=== PATIENT | female | born 1990 | race Caucasian/White ===

== ENCOUNTER 2018-02-21 09:26 | Emergency (ER) | payer OTHER ==
[2018-02-21] MEDS ORDERED: SODIUM CHLORIDE 0.9% 1,000 ML IV ONE (12:06)
[2018-02-21] MEDS ORDERED: METOCLOPRAMIDE 10 MG/2 ML VIAL IVP STA (12:06)
[2018-02-21 12:50] LABS: BASOPHILS % (AUTO) 0.7 %; EOSINOPHILS % (AUTO) 0.7 %; HGB - HEMOGLOBIN 13.9 g/dL (12.0-16.0); LYMPHOCYTES # (AUTO) 1.7 10^3/uL (1.5-3.5); LYMPHOCYTES % (AUTO) 35.7 %; MEAN CORPUSCULAR HEMOGLOBIN 31.2 pg (27.0-31.0); MEAN CORPUSCULAR HGB CONC 34.2 g/dL (32.0-36.0); MEAN CORPUSCULAR VOLUME 91.2 fL (81.0-99.0); MEAN PLATELET VOLUME 8.2 fL (7.9-10.8); MONOCYTES # (AUTO) 0.6 10^3/uL (0.0-1.0); MONOCYTES % (AUTO) 12.3 %; NEUTROPHILS # (AUTO) 2.4 10^3/uL (1.5-6.6); NEUTROPHILS % (AUTO) 50.6 %; PLT - PLATELET COUNT 203 10^3/uL (130-450); RED BLOOD COUNT 4.47 10^6/uL (4.20-5.40); RED CELL DISTRIBUTION WIDTH 12.8 % (12.0-15.0); WHITE BLOOD COUNT 4.7 x10^3/uL (4.8-10.8)
--- NOTE | 2018-02-21 12:51 | XRAY Report ---
Reason: pain Procedure Date: 02/21/2018 Accession Number: [id number] / [id number] Procedure: XR - Abdomen Acute CPT Code: FULL RESULT: EXAM: ABDOMINAL SERIES AND PA CHEST EXAM DATE: 02/21/2018 12:20 PM. CLINICAL HISTORY: Pain. COMPARISON: None. TECHNIQUE: 2 views abdomen and 1 view chest. FINDINGS: CHEST: Lungs/Pleura: No focal opacities. No effusion or pneumothorax. Mediastinum: Within exam limitations, cardiomediastinal contour is normal. ABDOMEN: Bowel Gas Pattern: Within normal limits. No dilated loops or abnormal fluid levels. Free Air: None. There is a moderate stool burden. IMPRESSION: No acute thoracic or abdominal findings [facility]
[2018-02-21 13:30] LABS: ACETAMINOPHEN < 10 ug/mL (10-30); ALBUMIN/GLOBULIN RATIO 1.5 (1.0-2.2); ALKALINE PHOSPHATASE 65 IU/L (42-121); ALT ALANINE AMINOTRANSFERASE 15 IU/L (10-60); AST ASPARTATE AMINOTRANSFERASE 23 IU/L (10-42); BILIRUBIN,TOTAL 0.5 mg/dL (0.2-1.0); BUN - BLOOD UREA NITROGEN 9 mg/dL (6-20); CALCIUM 8.4 mg/dL (8.5-10.3); CARBON DIOXIDE - CO2 21 mmol/L (21-32); CHLORIDE 108 mmol/L (101-111); CREATININE 0.6 mg/dL (0.4-1.0); GFR - MDRD 119 (>89); GLUCOSE 99 mg/dL (70-100); LIPASE 28 U/L (22-51); SALICYLATE < 6.0 mg/dL; SODIUM 136 mmol/L (135-145); TOTAL PROTEIN 6.7 g/dL (6.7-8.2)
--- NOTE | 2018-02-21 13:55 | CT Report ---
Reason: Convulsion like activity Procedure Date: 02/21/2018 Accession Number: [id number] / [id number] Procedure: CT - Head W/O CPT Code: FULL RESULT: EXAM: CT HEAD EXAM DATE: 02/21/2018 01:19 PM. CLINICAL HISTORY: Convulsion like activity. COMPARISON: None. TECHNIQUE: Multiaxial CT images were obtained from the foramen magnum to the vertex. Reformats: Sagittal and coronal. IV contrast: None. In accordance with CT protocol optimization, one or more of the following dose reduction techniques were utilized for this exam: automated exposure control, adjustment of mA and/or KV based on patient size, or use of iterative reconstructive technique. FINDINGS: Parenchyma: No intraparenchymal hemorrhage. No evidence of mass, midline shift, or CT findings of infarction. Peterson-white differentiation is distinct. Extraaxial Spaces: Normal for age. No subdural or epidural collections identified. Ventricles: Normal in size and position. Sinuses and Orbits: Imaged paranasal sinuses, orbits, and mastoids show no significant abnormality. Bones: No evidence of fracture or calvarial defect. IMPRESSION: No evidence of acute intracranial process or calvarial fracture [facility]
[2018-02-21 14:00] LABS: MUDS CUTOFF CONCENTRATIONS CUTOFF CONC BELOW:
[2018-02-21 14:03] LABS: BILIRUBIN,URINE NEGATIVE (NEGATIVE); GLUCOSE, URINE (UA) NEGATIVE (NEGATIVE); KETONES,URINE (UA) 15 mg/dL (NEGATIVE); LEUKOCYTE ESTERASE, URINE NEGATIVE (NEGATIVE); NITRITE,URINE NEGATIVE (NEGATIVE); OCCULT BLOOD,URINE MODERATE (NEGATIVE); PROTEIN,URINE NEGATIVE (NEGATIVE); UROBILINOGEN,URINE 0.2 (NORMAL) E.U./dL (NORMAL)
[2018-02-21 14:12] LABS: CLARITY,URINE CLEAR (CLEAR)
[2018-02-21 14:13] LABS: AMPHETAMINE SCREEN,URINE NEGATIVE (NEGATIVE); BACTERIA,URINE Moderate /HPF (None Seen); BENZODIAZEPINES SCREEN, URINE NEGATIVE (NEGATIVE); COCAINE SCREEN URINE NEGATIVE (NEGATIVE); HCG UR QUAL NEGATIVE; METHADONE SCREEN, URINE NEGATIVE (NEGATIVE); METHAMPHETAMINES SCREEN, URINE NEGATIVE (NEGATIVE); OPIATE SCREEN, URINE NEGATIVE (NEGATIVE); OXYCODONE SCREEN, URINE NEGATIVE (NEGATIVE); PROPOXYPHENE SCREEN, URINE NEGATIVE (NEGATIVE); SQUAMOUS EPITHELIAL CELL,UR FEW Squamous (<= Few); TRICYCLIC ANTIDEPRESSANT,URINE NEGATIVE (NEGATIVE)
--- NOTE | 2018-02-21 15:09 | ED Physician Documentation ---
History of Present Illness - Stated complaint Stated Complaint: DIZZY,HEADACHE, - Chief complaint Chief Complaint: General - History obtained from History obtained from: Patient - Additonal information Additional information: 27-year-old female presents the emergency department with multiple complaints. The patient reports increasing dizziness and lightheadedness which is associated with a headache. The patient reports a headache which has gradually worsened. The patient denies vision changes, motor weakness or sensory changes. The patient denies neck stiffness or radiation into her neck or fever. The patient reports lower abdominal pain which has progressively worsened which initially was associated with constipation and now is associated with diarrhea. The patient denies any focal area of abdominal pain. The patient denies dysuria or vaginal discharge. Symptoms are described as moderate. No triggering factors. No relieving factors. No other associated symptoms Review of Systems Constitutional: reports: Chills, Fatigue. denies: Fever Eyes: denies: Discharge Ears: denies: Ear pain Nose: denies: Congestion Throat: denies: Sore throat Cardiac: denies: Chest pain / pressure Respiratory: denies: Dyspnea GI: reports: Abdominal Pain, Nausea, Diarrhea : denies: Dysuria, Vaginal bleeding Skin: denies: Rash Musculoskeletal: denies: Neck pain, Back pain Neurologic: reports: Headache. denies: Generalized weakness, Focal weakness, Confused Immunocompromised: denies: Chemotherapy PD PAST MEDICAL HISTORY - Past Medical History Past Medical History: No - Past Surgical History Past Surgical History: Yes Ortho: Arthroscopic surgery - Present Medications Home Medications: Ambulatory Orders Medication Instructions Recorded Confirmed Acyclovir [Zovirax] 400 mg PO TID 10 Days tablet 12/28/13 Bcp 1 tab PO DAILY 12/28/13 12/28/13 Lidocaine Viscous 2% [Xylocaine 5 ml [place] Q4H #[place] [facility] [place] Viscous 2%] - Allergies Allergies/Adverse Reactions: Allergies Allergy/AdvReac Type Severity Reaction Status Date / Time amoxicillin [Amoxicillin] AdvReac Intermediate Edema Verified 12/28/13 01:31 - Social History Does the pt smoke?: No Smoking Status: Never smoker Does the pt drink ETOH?: Yes Does the pt have substance abuse?: No - Immunizations Immunizations are current?: Yes PD ED PE NORMAL - General General: Alert and oriented X 3, No acute distress - HEENT HEENT: Atraumatic, PERRL, EOMI, Ears normal - Neck Neck: Supple, no meningeal sign - Cardiac Cardiac: RRR, Strong equal pulses - Respiratory Respiratory: No respiratory distress - Abdomen Abdomen: Soft, Non distended. No: Non tender (The patient has lower abdominal tenderness, there is no rebound or peritoneal signs) - Back Back: No CVA TTP - Derm Derm: Normal color - Extremities Extremities: No deformity, Normal ROM s pain, No edema - Neuro Neuro: Alert and oriented X 3, Normal speech - Psych Psych: Normal mood Results - Vitals Vitals: Vital Signs - 24 hr 02/21/18 02/21/18 02/21/18 09:43 11:44 12:52 Temperature 36.6 C 36.3 C L Heart Rate 83 88 86 Respiratory 16 14 12 Rate Blood Pressure 130/82 H 92/69 109/61 O2 Saturation 99 100 98 02/21/18 13:53 Temperature Heart Rate 80 Respiratory 18 Rate Blood Pressure 109/78 O2 Saturation 98 Oxygen O2 Source Room air - Labs Labs: Laboratory Tests 02/21/18 02/21/18 02/21/18 12:45 13:04 13:04 WBC 4.7 L RBC 4.47 Hgb 13.9 Hct 40.8 MCV 91.2 MCH 31.2 H MCHC 34.2 RDW 12.8 Plt Count 203 MPV 8.2 Neut # (Auto) 2.4 Lymph # (Auto) 1.7 [place] # (Auto) 0.6 Eos # (Auto) 0.0 Baso # (Auto) 0.0 Absolute Nucleated RBC 0.00 Nucleated RBC % 0.0 Sodium 136 Potassium 3.6 Chloride 108 Carbon Dioxide 21 Anion Gap 7.0 BUN 9 Creatinine 0.6 Estimated GFR (MDRD) 119 Glucose 99 Calcium 8.4 L Total Bilirubin 0.5 AST 23 ALT 15 Alkaline Phosphatase 65 Total Protein 6.7 Albumin 4.0 Globulin 2.7 Albumin/Globulin Ratio 1.5 Lipase 28 TSH 4.42 Urine Color Urine Clarity Urine pH Ur Specific University Urine Protein Urine Glucose (UA) Urine Ketones Urine Occult Blood Urine Nitrite Urine Bilirubin Urine Urobilinogen Ur Leukocyte Esterase Urine RBC Urine WBC Ur Squamous Epith Cells Urine Bacteria Ur Microscopic Review Urine Culture Comments Urine HCG, Qual Salicylates < 6.0 Urine Opiates Screen Ur Oxycodone Screen Urine Methadone Screen Ur Propoxyphene Screen Acetaminophen < 10 L Ur Barbiturates Screen Ur Tricyclics Screen Ur Phencyclidine Scrn Ur Amphetamine Screen U Methamphetamines Scrn U Benzodiazepines Scrn Urine Cocaine Screen U Cannabinoids Screen Ethyl Alcohol < 5.0 02/21/18 02/21/18 13:45 13:45 WBC RBC Hgb Hct MCV MCH MCHC RDW Plt Count MPV Neut # (Auto) Lymph # (Auto) [place] # (Auto) Eos # (Auto) Baso # (Auto) Absolute Nucleated RBC Nucleated RBC % Sodium Potassium Chloride Carbon Dioxide Anion Gap BUN Creatinine Estimated GFR (MDRD) Glucose Calcium Total Bilirubin AST ALT Alkaline Phosphatase Total Protein Albumin Globulin Albumin/Globulin Ratio Lipase TSH Urine Color YELLOW Urine Clarity CLEAR Urine pH 6.0 Ur Specific University 1.025 1.025 Urine Protein NEGATIVE Urine Glucose (UA) NEGATIVE Urine Ketones 15 H Urine Occult Blood MODERATE H Urine Nitrite NEGATIVE Urine Bilirubin NEGATIVE Urine Urobilinogen 0.2 (NORMAL) Ur Leukocyte Esterase NEGATIVE Urine RBC 6-10 H Urine WBC 0-3 Ur Squamous Epith Cells FEW Squamous Urine Bacteria Moderate H Ur Microscopic Review INDICATED Urine Culture Comments INDICATED Urine HCG, Qual NEGATIVE Salicylates Urine Opiates Screen NEGATIVE Ur Oxycodone Screen NEGATIVE Urine Methadone Screen NEGATIVE Ur Propoxyphene Screen NEGATIVE Acetaminophen Ur Barbiturates Screen NEGATIVE Ur Tricyclics Screen NEGATIVE Ur Phencyclidine Scrn NEGATIVE Ur Amphetamine Screen NEGATIVE U Methamphetamines Scrn NEGATIVE U Benzodiazepines Scrn NEGATIVE Urine Cocaine Screen NEGATIVE U Cannabinoids Screen NEGATIVE Ethyl Alcohol - Rads (name of study) CT HEAD Radiology: Final report received (IMPRESSION: No evidence of acute intracranial process or calvarial fracture) Acute Abdominal Series Radiology: Final report received (IMPRESSION: No acute thoracic or abdominal findings ) PD MEDICAL DECISION MAKING - ED course ED course: The patient had a vasovagal response just after having her blood drawn, when the nurse went into the room the patient had a pale appearance and appeared to have had a vagal response. The patient denied any chest pain or palpitations. On reevaluation the patient was resting comfortably and appeared to be under no acute distress and her symptoms appear to be under control. The patient's workup does not reveal any significant abnormality, presently on history and physical and lab work there is no findings that would necessitate a CT scan of the abdomen and pelvis presently. Currently, the patient appears appropriate for discharge and ongoing outpatient management. I discussed with the patient warning signs for more serious intra-abdominal process and advised her to return to the emergency department immediately for reevaluation. Departure - Departure Disposition: 01 Home, Self Care Clinical Impression: Vasovagal episode, Dizziness Headache Qualifiers: Headache type: unspecified Headache chronicity pattern: acute headache Intractability: not intractable Qualified Code(s): R51 - Headache Abdominal pain Qualifiers: Abdominal location: unspecified location Qualified Code(s): R10.9 - Unspecified abdominal pain Hematuria Qualifiers: Hematuria type: unspecified type Qualified Code(s): R31.9 - Hematuria, unspecified Condition: Good Instructions: ED Abdominal Pain Unkn Cause, ED Cephalgia Unspecified, ED Near Syncope Vasovagal Follow-Up: SUNG GRIFFIN [Primary Care Provider] - Within 1 week (Please have your Further evaluate the symptoms as an outpatient. Please ask your primary care to recheck your urinalysis since there was nonspecific blood on today's sample.) Comments: Please return to the emergency department immediately for any worsening or any concerns.
[2018-02-21 15:17] VITALS: BP 110/68
== END 2018-02-21 15:21 | disposition home or self-care (01) ==
LOC: ED 09:26
DX: R55 Syncope and collapse (principal); R42 Dizziness and giddiness; R51 Headache; R10.30 Lower abdominal pain, unspecified; R31.9 Hematuria, unspecified
CPT/HCPCS: 36415; 70450; 74022; 80053; 80306; 80307; 80320; 80329; 81001; 81025; 83690; 84443; 85025; 87086; 93005; 96361; 96374; 99284; J2765; 81003

== ENCOUNTER 2018-10-10 20:01 | Emergency (ER) | payer OTHER ==
--- NOTE | 2018-10-10 20:24 | ED Physician Documentation ---
PD HPI SKIN - Stated complaint Stated Complaint: POSS BEE STING - Chief complaint Chief Complaint: Wound PD PAST MEDICAL HISTORY - Past Surgical History Past Surgical History: Yes Ortho: Arthroscopic surgery - Present Medications Home Medications: Ambulatory Orders Medication Instructions Recorded Confirmed No Known Home Medications 10/10/18 10/10/18 - Allergies Allergies/Adverse Reactions: Allergies Allergy/AdvReac Type Severity Reaction Status Date / Time amoxicillin [Amoxicillin] AdvReac Intermediate Edema Verified 10/10/18 20:07 - Social History Does the pt smoke?: No Smoking Status: Never smoker Does the pt drink ETOH?: Yes Does the pt have substance abuse?: No - Immunizations Immunizations are current?: Yes Results - Vitals Vitals: Vital Signs - 24 hr 10/10/18 20:04 Temperature 36.4 C L Heart Rate 90 Respiratory 16 Rate Blood Pressure 129/73 O2 Saturation 98 Oxygen O2 Source Room air
--- NOTE | 2018-10-10 20:28 | ED Physician Documentation ---
PD HPI ANIMAL BITE - Stated complaint Stated Complaint: POSS BEE STING - Chief complaint Chief Complaint: Wound - History obtained from History obtained from: Patient - History of Present Illness Location of injury(ies): LLE Details of the event: Other (bee stings) Timing - details: Gradual onset Associated symptoms: Discolored Recently seen: Not recently seen - Additional information Additional information: stung by bees one week ago (to neck and left thigh). she experienced local swelling and pruritis at these sites and no longer has symptoms associated with the two sting sites on her neck. The left thigh sting site was improving but over past 2-3 days is getting increasingly red and pruritic . Inadequate relief with benadryl Review of Systems Constitutional: denies: Fever Skin: reports: Rash, Bite / sting Musculoskeletal: denies: Extremity pain, Extremity swelling PD PAST MEDICAL HISTORY - Past Medical History Past Medical History: No - Past Surgical History Past Surgical History: Yes Ortho: Arthroscopic surgery - Present Medications Home Medications: Ambulatory Orders Medication Instructions Recorded Confirmed Doxycycline Hyclate 100 mg PO BID #13 capsule 10/10/18 Fluocinonide/Emollient Base 1 film TP BID #1 cream..g. 10/10/18 [Fluocinonide-E 0.05% Cream] hydrOXYzine pamoate [Hydroxyzine 25 mg PO Q6HR PRN #14 capsule 10/10/18 Pamoate] - Allergies Allergies/Adverse Reactions: Allergies Allergy/AdvReac Type Severity Reaction Status Date / Time amoxicillin [Amoxicillin] AdvReac Intermediate Edema Verified 10/10/18 20:07 - Living Situation Living Arrangement: reports: At home - Social History Does the pt smoke?: No Smoking Status: Never smoker Does the pt drink ETOH?: Yes Does the pt have substance abuse?: No - Immunizations Immunizations are current?: Yes PD ED PE NORMAL - Vitals Vital signs reviewed: Yes - General General: Alert and oriented X 3, No acute distress, Well developed/nourished PD ED PE EXPANDED - Extremities PETR LE visual: 1 - rash (erythema without tenderness or swelling. poorly marginated. not hot to touch) Results - Vitals Vitals: Vital Signs - 24 hr 10/10/18 10/10/18 20:04 21:07 Temperature 36.4 C L 37.0 C Heart Rate 90 99 Respiratory 16 16 Rate Blood Pressure 129/73 120/69 O2 Saturation 98 97 Oxygen O2 Source Room air PD MEDICAL DECISION MAKING - ED course Complexity details: considered differential, d/w patient ED course: suspect lingering large local reaction and will rx topical steroid and given one-time dose prednisone in ED, as well as rx for topical steroid and hydroxyzine. Time course is unusually long for local reaction and worsening after improvement raises concern for cellulitis and will cover with doxycycline Departure - Departure Disposition: Home, Self Care Clinical Impression: Bee sting Condition: Good Health Concerns: bee sting with large local reaction, possible infection Plan of Treatment: antibiotic for possible cellulitis, topical steroid prescription and prescription antihistamine for pruritis Care Goals: resolution of symptoms Assessment: see diagnoses Instructions: ED Sting Bite Insect Infec Follow-Up: SUNG GRIFFIN [Primary Care Provider] - Prescriptions: hydrOXYzine pamoate [Hydroxyzine Pamoate] 25 mg PO Q6HR PRN #14 capsule PRN Reason: Itching Doxycycline Hyclate 100 mg PO BID #13 capsule Fluocinonide/Emollient Base [Fluocinonide-E 0.05% Cream] 1 film TP BID #1 cream..g. Discharge Date/Time: 10/10/18 21:13
[2018-10-10] MEDS ORDERED: DOXYCYCLINE 100 MG TABLET PO STA (20:54)
[2018-10-10] MEDS ORDERED: predniSONE 20 MG TABLET PO STA (20:55)
[2018-10-10] MEDS ORDERED: FLUOCINONIDE 0.05% CREAM 15 GM TUBE TOP STA (20:55)
[2018-10-10 21:08] VITALS: BP 120/69
== END 2018-10-10 21:13 | disposition home or self-care (01) ==
LOC: ED 20:01
DX: T63.441A Toxic effect of venom of bees, accidental (unintentional), initial encounter (principal); X58.XXXA Exposure to other specified factors, initial encounter
CPT/HCPCS: 99283; A9270; J3490; J7512

== ENCOUNTER 2021-05-08 08:00 | Outpatient (CLI) | payer OTHER | END 2021-05-08 23:59 | LOC: LAB.N 08:00 | PROVIDERS: ATTEND Physician Assistant Medical | DX: U07.1 COVID-19 (principal) ==

== ENCOUNTER 2023-08-23 07:05 | Outpatient (CLI) | payer OTHER ==
--- NOTE | 2023-08-23 10:20 | Ultrasound Report ---
PROCEDURE: Pelvic w/Transvaginal INDICATIONS: EXCESSIVE AND FREQUENT MENSTRATION TECHNIQUE: Real-time scanning was performed of the pelvic organs, with image documentation. Additional endovagi nal scanning was necessary due to incomplete visualization of the adnexal and endometrial structures by transabdominal scanning. COMPARISON: 02/21/2018 FINDINGS: Uterus: Uterus is retroverted and normal in size at 7.7 x 4.9 x 7.1 cm. The myometrium is heterogen eous. The endometrium measures 4 mm in combined thickness. Ovaries: The right ovary measures 3.7 x 2.6 x 2.3 cm, with a calculated ovarian volume of 11.6 cc. The left ovary measures 3.1 x 1.6 x 1.2 cm, with a calculated ovarian volume of 3 cc. The ovaries nayak ve a normal sonographic appearance. Less than 12 follicles can be seen in each ovary. No adnexal ma sses are seen. No cystic lesions measuring greater than 3 cm. Other: No pathologic free abdominal or pelvic fluid. IMPRESSION: Unremarkable pelvic ultrasound. Normal appearance of the ovaries and uterus. Reviewed by: Bubba Bryan MD on 08/23/2023 10:19 AM PDT Approved by: Bubba Bryan MD on 08/23/2023 10:19 AM PDT Station ID: [id number]
== END 2023-08-23 07:06 | disposition home or self-care (01) ==
LOC: DI 07:05
PROVIDERS: ATTEND Nurse Practitioner Family
DX: N92.0 Excessive and frequent menstruation with regular cycle (principal)